=== PATIENT | male | born 1965 | race Caucasian/White ===

== ENCOUNTER 2023-04-28 12:18 | Emergency (ER) | payer BC, OTHER | END 2023-04-28 13:50 | disposition home or self-care (01) | LOC: JP.ED 12:18 | DX: S06.0X9A Concussion with loss of consciousness of unspecified duration, initial encounter (principal); W01.198A Fall on same level from slipping, tripping and stumbling with subsequent striking against other object, initial encounter | CPT/HCPCS: 70450; 70450-26; 72125; 72125-26; 76377; 99284 ==

== ENCOUNTER 2024-11-11 16:12 | Emergency (ER) | payer OTHER ==
[2024-11-11] MEDS: Sodium Chloride 0.9% 10 ML Syringe FLUSH PRN (16:54)
[2024-11-11 17:16] LABS: BASOPHILS ABSOLUTE AUTO 0.04 K/uL (0.00-0.10); BASOPHILS PERCENT AUTO 0.4 % (0.1-1.3); EOSINOPHILS ABSOLUTE AUTO 0.06 K/uL (0.00-0.40); EOSINOPHILS PERCENT AUTO 0.6 % (0.0-5.4); IMMATURE GRAN PERCENT AUTO 0.2 % (0.0-0.7); LYMPHOCYTES ABSOLUTE AUTO 2.44 K/uL (0.8-3.3); LYMPHOCYTES PERCENT AUTO 22.9 % (11.4-47.7); MONOCYTES ABSOLUTE AUTO 0.68 K/uL (0.20-0.90); MONOCYTES PERCENT AUTO 6.4 % (3.3-12.6); NEUTROPHILS ABSOLUTE AUTO 7.41 K/uL (1.0-7.6); NEUTROPHILS PERCENT AUTO 69.5 % (40.0-78.1); PLATELET COUNT,PLT 171 K/uL (130-375); RED BLOOD CELL COUNT 5.08 M/uL (4.14-5.76); WHITE BLOOD CELL COUNT,WBC 10.7 K/uL (3.2-11.0)
[2024-11-11 17:17] LABS: IMMATURE GRAN ABSOLUTE AUTO 0.02 K/uL (0.00-0.23)
[2024-11-11 17:19] LABS: CREATININE 0.9 mg/dL (0.7-1.3); ESTIMATED GFR 97 mL/min (>60)
[2024-11-11 17:35] LABS: BLOOD UREA NITROGEN,BUN 10 mg/dL (7-18); CARBON DIOXIDE,CO2 29 mmol/L (21-32); CHLORIDE,CL 104 mmol/L (100-108); GLUCOSE RANDOM 109 mg/dL (74-106); POTASSIUM,K 5.1 mmol/L (3.6-5.2); SODIUM,NA 140 mmol/L (140-148)
[2024-11-11] MEDS: Diphtheria,Pertussis(Acell),Tetanus Vaccine 0.5 ML Syringe IM ONE (17:44)
[2024-11-11] MEDS: Iopamidol 612 MG/ML 100 ML Bottle IV SCH (18:10)
== END 2024-11-11 20:00 | disposition home or self-care (01) ==
LOC: JP.ED 16:12
DX: S30.1XXA Contusion of abdominal wall, initial encounter (principal); S20.212A Contusion of left front wall of thorax, initial encounter; Z79.899 Other long term (current) drug therapy; V49.49XA Driver injured in collision with other motor vehicles in traffic accident, initial encounter; Y93.89 Activity, other specified
CPT/HCPCS: 36415; 71260; 74177; 80048; 85025; 90471; 90715; 99284; A9270; Q9967

== ENCOUNTER 2024-12-27 06:41 | Day surgery (SDC) | payer OTHER ==
[2024-12-27] MEDS ORDERED: fentaNYL 50 MCG/ML SDV ONE (07:35)
[2024-12-27] MEDS ORDERED: Midazolam 1 MG/ML 2 ML SDV ONE (07:35)
[2024-12-27] MEDS ORDERED: Propofol 200 MG/20 ML SDV ONE (07:35)
[2024-12-27] MEDS: Lactated Ringers 1,000 ML IV SCH (07:36)
== END 2024-12-27 09:47 | disposition home or self-care (01) ==
LOC: JP.SDS 06:41
PROVIDERS: ATTEND Surgery
DX: Z12.11 Encounter for screening for malignant neoplasm of colon (principal); D12.3 Benign neoplasm of transverse colon; K63.5 Polyp of colon; E66.9 Obesity, unspecified
CPT/HCPCS: 00811; 45380; 45390; J2250; J2704; J3010; J7120